=== PATIENT | male | born 1990 | race African-American/Black ===

== ENCOUNTER 2018-01-24 02:36 | Emergency (ER) | payer SELFPAY ==
[~2018-01-24] VITALS: Ht 188 cm; Wt 75.0 kg
[2018-01-24 02:49] VITALS: BP 122/75; PULSE 70; RESP 18; TEMP 98.3; O2SAT 99
--- NOTE | 2018-01-24 03:22 | PD ---
HPI Chief Complaint: Injury Time Seen by Provider: 03:09 Travel History International Travel<30 days: No Contact w/Intl Traveler<30days: No Traveled to known affect area: No History of Present Illness HPI 27-year-old black male presents emergency department for evaluation of an injury to his right middle finger which occurred 3 days ago when he closing in a door of his home. He states that the finger has become increasingly painful, swollen and black and blue in the nailbed. Pain is moderate. No alleviating factors. Exacerbated by movement. He denies any sensory change. PFSH Past Medical History Medical History: Denies Significant Hx Tetanus Vaccination: < 5 Years Past Surgical History Surgical History: No Previous Surgery Social History Alcohol Use: No Tobacco Use: No Substance Use: No Allergies-Medications (Allergen,Severity, Reaction): Coded Allergies: No Known Allergies (Unverified , 01/24/18) Reported Meds & Prescriptions Reported Meds & Active Scripts Active Diclofenac Sodium DR (Diclofenac Sodium) 75 Mg Tabdr 75 Mg PO BID Review of Systems General / Constitutional: No: Fever Eyes: No: Visual changes HENT: No: Headaches Cardiovascular: No: Chest Pain or Discomfort Respiratory: No: Shortness of Breath Gastrointestinal: No: Abdominal Pain Genitourinary: No: Dysuria Musculoskeletal: Positive: Arthralgias, Limited ROM, Edema, Pain Skin: No Rash Neurologic: No: Weakness Psychiatric: No: Depression Endocrine: No: Polydipsia Hematologic/Lymphatic: No: Easy Bruising Physical Exam Narrative GENERAL: This is a well-nourished, well-developed patient, in no apparent distress. SKIN: No rashes, ecchymoses or lesions. Warm and dry. HEAD: Atraumatic. Normocephalic. EYES: PERRL, EOMI, no discharge or injection. No scleral icterus. EARS: Clear NOSE: Nasal turbinates appear normal. THROAT: Mucosa pink and moist. Airway patent. NECK: Trachea midline. supple, moves head freely. LUNGS: Clear to auscultation. CV: Regular in rhythm. ABDOMEN: Soft nontender. EXT: No clubbing cyanosis. Examination of the right middle finger reveals moderate swelling of the distal phalanx with 100% subungual hematoma. He has moderate tenderness to the distal phalanx. The skin is intact. No pain in the middle phalanx or proximal phalanx. Data Data Last Documented VS Vital Signs Date Time Temp Pulse Resp B/P (MAP) Pulse Ox O2 Delivery O2 Flow Rate FiO2 01/24/18 02:49 98.3 70 18 122/75 (91) 99 Orders Orders Finger ([id number]) (01/24/18 03:27) Ed Discharge Order (01/24/18 04:15) MDM Medical Decision Making Medical Screen Exam Complete: Yes Emergency Medical Condition: Yes Medical Record Reviewed: Yes Interpretation(s) Last 24 hours Impressions Finger X-Ray 01/24/18 3415 Signed Impressions: CONCLUSION: Mild soft tissue swelling with no acute fracture or malalignment. Differential Diagnosis MDM: High Differential diagnoses: Fracture, sprain, strain, dislocation, contusion, neurovascular injury Narrative Course Patient is given a digital block with 1% lidocaine to the right middle finger Right middle finger nail removal: At the finger is anesthetized with lidocaine the nail was elevated down the nailbed. A large amount of blood is released from underneath the nail. The nail is removed from the eponychial space. A nonadherent bulky dressings applied. Patient tolerated procedure well. Diagnosis Primary Impression: Subungual hematoma of right ring finger Patient Instructions: General Instructions Additional Instructions: Rest. Elevation. Soak in Epsom salts twice daily. Diclofenac for pain. Anticipate the nail to grow out 2 months. Follow-up with a medical doctor in 1 week if any problems develop return to the ER. Med/Other Pt SpecificInfo: Prescription(s) given, Wound Care Scripts Diclofenac Sodium DR (Diclofenac Sodium DR) 75 Mg Tabdr 75 MG PO BID, #14 TAB 0 Refills Prov: Mitali Alvarez DO 01/24/18 Disposition: 01 DISCHARGE HOME Condition: Stable Kris Nelson January 24, 2018 03:22
--- NOTE | 2018-01-24 03:52 | RADRPT ---
EXAM DATE: 01/24/2018 3:35 AM EDT AGE/SEX: 27 years / Male INDICATIONS: Patient states right hand, third digit pain after getting caught in between two objects . CLINICAL DATA: This is the patient's initial encounter. Patient reports that signs and symptoms have been present for 1 day and indicates a pain score of 8/10. MEDICAL/SURGICAL HISTORY: None. None. COMPARISON: No prior [facility] exams available for comparison. FINDINGS: Bony structures are intact and in normal alignment. Joints are intact without dislocation or signifi cant arthropathy. Osseous density is normal. There is mild soft tissue swelling over the distal phal anx. No radiopaque foreign bodies seen. CONCLUSION: Mild soft tissue swelling with no acute fracture or malalignment. Electronically signed by: Umair Ledezma MD 01/24/2018 3:50 AM EDT
[2018-01-24] MEDS ORDERED: DICL75TA PO (04:14)
== END 2018-01-24 04:38 | disposition home or self-care (01) ==
LOC: NEPD 02:36
DX: S60.141A Contusion of right ring finger with damage to nail, initial encounter (principal); W23.0XXA Caught, crushed, jammed, or pinched between moving objects, initial encounter; Y92.009 Unspecified place in unspecified non-institutional (private) residence as the place of occurrence of the external cause
CPT/HCPCS: 11730; 73140